=== PATIENT | female | born 1955 | race Two or more races ===

== ENCOUNTER 2021-06-20 14:10 | Outpatient (CLI) | payer MEDICARE, OTHER | END 2021-06-20 23:59 | disposition home or self-care (01) | LOC: MSC 14:10 | PROVIDERS: ATTEND Internal Medicine | DX: I10 Essential (primary) hypertension (principal); R60.0 Localized edema; E11.9 Type 2 diabetes mellitus without complications; Z79.4 Long term (current) use of insulin ==

== ENCOUNTER 2021-07-04 13:37 | Outpatient (CLI) | payer MEDICARE, OTHER | END 2021-07-04 23:59 | disposition home or self-care (01) | LOC: MSC 13:37 | PROVIDERS: ATTEND Internal Medicine | DX: I95.9 Hypotension, unspecified (principal); I10 Essential (primary) hypertension; R05.9 Cough, unspecified; R11.10 Vomiting, unspecified; E11.9 Type 2 diabetes mellitus without complications; R60.0 Localized edema ==

== ENCOUNTER 2021-07-04 14:11 | Emergency (ER) | payer MEDICARE, OTHER ==
[~2021-07-04] VITALS: Ht 162.6 cm; Wt 52.2 kg
--- NOTE | 2021-07-04 14:35 | NUR ---
TO ER BED 1, BIB WOUND CARE NURSE FOR GENERALIZED WEAKNESS AND PALLOR, AAOX3, BREATHING EVEN AND NON LABORED, AWAITING MD GALAVIZ
--- NOTE | 2021-07-04 14:55 | NUR ---
DR. GIL SPEAKING TO DR. MARIO REGARDING PT.
[2021-07-04] MEDS ORDERED: IV NS 0.9% 1,000 ML BAG IV ONE (15:00)
--- NOTE | 2021-07-04 15:10 | NUR ---
SAMPLE COLLECTOR AT BEDSIDE
[2021-07-04 15:43] LABS: BASOPHILS % (AUTO) 0.4 % (0.0-2.0); EOSINOPHILS % (AUTO) 0.7 % (0.0-6.0); HEMATOCRIT 29 % (33-45); HEMOGLOBIN 9.3 g/dL (11.5-14.8); LYMPHOCYTES % (AUTO) 30.3 % (20.0-44.0); MEAN CORPUSCULAR HGB CONC 32 g/dl (31.0-36.0); MEAN CORPUSCULAR VOLUME 77 fL (82-100); MONOCYTES # (AUTO) 0.6 K/uL (0.1-1.30); MONOCYTES % (AUTO) 5.9 % (2.0-12.0); NEUTROPHILS # (AUTO) 6.2 K/uL (1.8-8.9); NEUTROPHILS % (AUTO) 62.7 % (43.0-81.0); PLATELET COUNT (AUTO) 202 K/uL (150-450); RED BLOOD CELL COUNT(AUTO) 3.78 MIL/uL (4.0-5.2); WHITE BLOOD COUNT (AUTO) 9.9 K/uL (4.3-11.0)
[2021-07-04 16:00] LABS: CALCIUM, SERUM 8.6 mg/dL (8.5-10.1); CARBON DIOXIDE 31 mmol/L (21-32); CHLORIDE 108 mmol/L (98-107); GLUCOSE 131 mg/dL (74-106); POTASSIUM 4.9 mmol/L (3.5-5.1); SODIUM SERUM 144 mmol/L (136-145); UREA NITROGEN, BLOOD 41 mg/dL (7-18)
[2021-07-04 16:06] LABS: ALANINE AMINOTRANSFERASE 20 U/L (12-78); ALBUMIN 2.7 g/dL (3.4-5.0); ALKALINE PHOSPHATASE 73 U/L (46-116); ASPARTATE AMINOTRANSFERASE 15 U/L (15-37); BILIRUBIN,DIRECT 0.1 mg/dL (0.0-0.2); BILIRUBIN,TOTAL 0.1 mg/dL (0.2-1.0)
[2021-07-04 17:38] LABS: BILIRUBIN,URINE NEGATIVE (NEGATIVE); COLOR,URINE YELLOW (YELLOW); LEUKOCYTE ESTERASE ,URINE NEGATIVE (NEGATIVE); NITRITE, URINE NEGATIVE (NEGATIVE); PH,URINE 6.5 (5.0-8.0); PROTEIN,URINE 100 mg/dl (NEGATIVE); UGLUCOSE NEGATIVE (NEGATIVE); UROBILINOGEN,URINE 0.2 EU/dL (0.2)
[2021-07-04 17:44] LABS: WBC,URINE 0-2 /HPF (0-3)
[2021-07-04 17:45] LABS: BACTERIA,URINE Few /HPF (None Seen); SQUAMOUS EPITHELIAL CELL,UR Few /HPF (None Seen)
--- NOTE | 2021-07-04 18:23 | NUR ---
CALLED [facility] FOR S TRANSPORT. ETA [phone] [address]
--- NOTE | 2021-07-04 19:02 | NUR ---
Patient discharged to home via ambulance in stable condition. Written and verbal after care instructions given. Patient verbalizes understanding of instruction.
[2021-07-04 19:21] VITALS: BP 133/78
== END 2021-07-04 19:21 ==
LOC: ER 14:13
DX: E86.0 Dehydration (principal); Z20.822 Contact with and (suspected) exposure to COVID-19; R53.1 Weakness; R55 Syncope and collapse; E88.09 Other disorders of plasma-protein metabolism, not elsewhere classified; D50.9 Iron deficiency anemia, unspecified; R60.0 Localized edema; I11.9 Hypertensive heart disease without heart failure; L97.919 Non-pressure chronic ulcer of unspecified part of right lower leg with unspecified severity; E11.9 Type 2 diabetes mellitus without complications
CPT/HCPCS: 36415; 71045; 80048; 80076; 81001; 84484; 85025; 93005; 96360; 99285; J7030; C9803; U0003